=== PATIENT | female | born 1945 | race Hispanic/Latino ===

== ENCOUNTER 2017-10-11 06:05 | Observation (INO) | payer MEDICARE ==
[2017-10-10 11:30] LABS: BASOPHILS % 0.4 % (0.0-1.0); EOSINOPHILS # (AUTO) 0.1 (0.0-0.4); EOSINOPHILS % 2.3 % (0.0-6.0); HEMATOCRIT 41.7 % (34.2-44.1); HEMOGLOBIN 13.9 g/dL (12.0-16.0); LYMPHOCYTES % 38.2 % (18.0-39.1); MEAN CORPUSCULAR HEMOGLOBIN 30.3 pg (28-32); MEAN CORPUSCULAR HGB CONC 33.3 g/dL (31-35); MEAN CORPUSCULAR VOLUME 90.8 fL (81-99); MONOCYTES # (AUTO) 0.4 (0.2-0.8); MONOCYTES % 6.6 % (4.4-11.3); NEUTROPHILS # (AUTO) 2.8 (2.1-6.9); NEUTROPHILS % 52.3 % (38.7-80.0); PLATELET COUNT 203 x10e3/uL (140-360); RED BLOOD COUNT 4.59 x10e6/uL (3.6-5.1); RED CELL DISTRIBUTION WIDTH 12.4 % (11.7-14.4)
[2017-10-10 11:56] LABS: ALANINE AMINOTRANSFERASE 30 IU/L (0-55); ALBUMIN/GLOBULIN RATIO 1.1 (0.8-2.0); ALKALINE PHOSPHATASE 112 IU/L (40-150); ANION GAP 14.9 mmol/L (8-16); BLOOD UREA NITROGEN 12 mg/dL (7-26); BUN/CREATININE RATIO 13 (6-25); CALCIUM 10.1 mg/dL (8.4-10.2); CARBON DIOXIDE 31 mmol/L (22-29); CHLORIDE 100 mmol/L (98-107); EST GLOMERULAR FILTRATION RATE > 60 ML/MIN (60-); GLUCOSE 199 mg/dL (74-118); POTASSIUM 3.9 mmol/L (3.5-5.1); SODIUM 142 mmol/L (136-145)
--- NOTE | 2017-10-10 12:35 | Diagnostic Imaging Report ---
PROCEDURE:CHEST 2 VIEWS TECHNIQUE:PA and lateral chest INDICATION:Preoperative evaluation for cystoscopy surgery COMPARISON:None. FINDINGS: Lungs are clear and symmetrically inflated. No pleural effusions. Normal heart size, mediastinal contour, and pulmonary vasculature. Intact skeleton. 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 CONCLUSION: No acute abnormality. Dictated by: Iron Philippe M.D. on 10/10/2017 at 12:38 Electronically approved by: Iron Philippe M.D. on 10/10/2017 at 12:38
[~2017-10-11] VITALS: Ht 154.9 cm; Wt 87.8 kg
[~2017-10-11 06:05] MED LIST: B-12500 MCG; CALTRATE-600 W1 EACH PO; DIOVAN HCT 3201 EAC1; FISH OIL 1,0001 EAC2; FISH OIL OMEGA1 EACH PO; FOLIC ACID1 MG PO; LOVASTATIN10 MG; METFORMIN HCL500 MG PO; METOPROLOL SUCC50 MG PO; VITAMIN B-650 MG PO
[2017-10-11] MEDS ORDERED: CEFAZOLIN SOD 2 GM/D5W 50ML 50 ML IV ONE (06:23)
[2017-10-11] MEDS ORDERED: BUPIVACAINE 0.5%/EPI 30 ML SDV INJ ONE ×2 (06:56→10:18)
[2017-10-11] MEDS ORDERED: ESTROGENS CONJUGATED VAGINAL CR 45 GM TUBE PV ONE (06:56)
[2017-10-11] MEDS ORDERED: IOPAMIDOL 610MG/1ML 300 MG/ML VIAL IV ONE (06:56)
[2017-10-11] MEDS ORDERED: DIATRIZOATE MEGLUMINE 300 MG/1 ML BTL UR ONE (09:07)
[2017-10-11] MEDS ORDERED: DEXTROSE 50% SYRINGE 50 ML IV PRN (12:30)
[2017-10-11] MEDS ORDERED: MORPHINE SULFATE 2 MG/ML SYR IV PRN (12:30)
[2017-10-11] MEDS ORDERED: DOCUSATE SODIUM 100 MG CAP PO PRN (12:30)
[2017-10-11] MEDS ORDERED: DIPHENHYDRAMINE HCL 25 MG CAP PO PRN (12:30)
[2017-10-11] MEDS ORDERED: ONDANSETRON HCL INJ 2 MG/ML VIAL IV PRN (12:30)
[2017-10-11] MEDS ORDERED: PROMETHAZINE HCL (IM) 25 MG/ML VIAL IV PRN (12:30)
[2017-10-11] MEDS ORDERED: HYDROCODONE/APAP 5MG-325MG TAB PO PRN (12:30)
[2017-10-11] MEDS ORDERED: ONDANSETRON HCL INJ 2 MG/ML VIAL ONE ×2 (13:11→14:07)
[2017-10-11] MEDS ORDERED: METOCLOPRAMIDE HCL 10 MG/2ML VIAL ONE (13:32)
[2017-10-11] MEDS ORDERED: CEFAZOLIN SOD 1 GM VIAL ONE (14:07)
[2017-10-11] MEDS ORDERED: ROCURONIUM BROMIDE 10 MG/ML 5ML VIAL ONE (14:07)
[2017-10-11] MEDS ORDERED: GLYCOPYRROLATE INJ 1MG/ 5 ML SYR ONE (14:07)
[2017-10-11] MEDS ORDERED: ACETAMINOPHEN 1000 MG/100 ML IV ONE (14:07)
[2017-10-11] MEDS ORDERED: NEOSTIGMINE 5 MG/5ML SYR ONE (14:07)
[2017-10-11] MEDS ORDERED: SEVOFLURANE INHAL SOLN 250 ML PEN BTL ONE (14:07)
[2017-10-11] MEDS ORDERED: PROPOFOL IV EMULSION 10 MG/ML 20 ML VIAL ONE (14:07)
[2017-10-11] MEDS ORDERED: LIDOCAINE HCL 2% LOCAL INJ 5 ML SDV VIAL INJ ONE (14:07)
[2017-10-11] MEDS ORDERED: DEXAMETHASONE SOD PHOS INJ 4 MG/ML VIAL ONE (14:07)
[2017-10-11 15:47] VITALS: BP 104/52
[2017-10-11 16:09] VITALS: BP 104/52
[2017-10-11] MEDS: INSULIN REGULAR, HUMAN 100 UNIT/1 ML 3ML VIAL SQ SCH ×2 (16:30→21:00)
[2017-10-11] MEDS: LACTATED RINGER'S 1,000 ML IV SCH ×2 (17:12→21:46)
[2017-10-11] MEDS: METFORMIN HCL 500 MG TAB PO SCH (17:12)
[2017-10-11] MEDS: CEFAZOLIN SOD 1 GM VIAL IV SCH (17:13)
[2017-10-11] MEDS ORDERED: CEFAZOLIN SOD 1 GM/NS 50ML 50 ML IV SCH (18:00)
[2017-10-11] MEDS: KETOROLAC TROMETHAMINE 30 MG/ML VIAL IV SCH (18:04)
--- NOTE | 2017-10-11 18:44 | Operative Report ---
DATE OF PROCEDURE: October 11, 2017 ATTENDING PHYSICIAN: Valeria Tomlinson MD SERVICE: Urology. PREOPERATIVE DIAGNOSES 1. Large cystocele. 2. Frequency of urination. 3. Left pelvic ovarian mass. POSTOPERATIVE DIAGNOSES 1. Large cystocele. 2. Frequency of urination. 3. Left pelvic ovarian mass. OPERATION PERFORMED 1. Cystourethroscopy and bilateral retrograde pyelograms under fluoroscopic control. 2. Placement of open-ended catheters bilaterally. 3. Cystogram under fluoroscopic control. 4. Interpretation of x-ray. Radiologist not present. 5. Supervision of fluoroscopy. Radiologist not present. OLIVE BRINE TESTER: None. ANESTHESIA: General. CLINICAL INDICATION NOTE: This 72-year-old patient was brought for hysterectomy. She does have a prolapse and left pelvic mass in the ovary. Dr. Valeria Tomlinson is the attending and will do the gynecological part. Planning to do a cystogram as well as cystoscopy and retrograde to assess the upper tracts and place open-ended catheters bilaterally to ease identification of the ureters during surgery. Procedure was discussed with the patient. Potential benefits and complications discussed, explained and accepted. DESCRIPTION OF PROCEDURE AND FINDINGS: After the proper level of anesthesia was achieved, the patient was placed in the lithotomy position, prepped and draped in a sterile fashion. Urethra inspected and is unremarkable. Patient had significant cystocele with the cervical uterus protruding out of the introitus. The bladder itself is unremarkable except for the deformity due to the cystocele. Both ureteral orifices were prominent. They were identified. Open-ended catheters were inserted bilaterally. No tumor or foreign bodies were found in the bladder. Bilateral retrogrades were done under fluoroscopic control. No intrinsic lesions were identified. No hydronephrosis. Open-ended catheters were then inserted up to each kidney. Following this, a cystogram was done under fluoroscopic control. No pathology was identified, and drainage film did not show any extravasation. Shearer catheter was kept in place, and both ureteral catheters were inserted into the Shearer. Job#: [id number]
[2017-10-11] MEDS ORDERED: FENTANYL CITRATE/PF 100MCG/2 ML INJ ONE (18:56)
[2017-10-11] MEDS ORDERED: MIDAZOLAM HCL 2 MG/2 ML VIAL ONE (18:56)
[2017-10-11 20:00] VITALS: BP 107/58
[2017-10-11 21:00] VITALS: BP 107/58
[2017-10-11] MEDS ORDERED: SIMVASTATIN 20 MG TAB PO SCH (21:00)
[2017-10-12] MEDS: KETOROLAC TROMETHAMINE 30 MG/ML VIAL IV SCH ×2 (00:11→06:16)
[2017-10-12 00:40] VITALS: BP 115/56
[2017-10-12] MEDS: CEFAZOLIN SOD 1 GM VIAL IV SCH ×2 (01:11→10:11)
[2017-10-12] MEDS: LACTATED RINGER'S 1,000 ML IV SCH (05:17)
[2017-10-12 05:40] VITALS: BP 97/53
[2017-10-12 06:10] LABS: BASOPHILS % 0.1 % (0.0-1.0); HEMATOCRIT 28.8 % (34.2-44.1); HEMOGLOBIN 9.5 g/dL (12.0-16.0); LYMPHOCYTES # (AUTO) 1.7 (1.0-3.2); LYMPHOCYTES % 20.3 % (18.0-39.1); MEAN CORPUSCULAR HEMOGLOBIN 30.4 pg (28-32); MEAN CORPUSCULAR VOLUME 92.3 fL (81-99); MONOCYTES # (AUTO) 0.7 (0.2-0.8); MONOCYTES % 8.9 % (4.4-11.3); NEUTROPHILS # (AUTO) 5.8 (2.1-6.9); NEUTROPHILS % 70.3 % (38.7-80.0); PLATELET COUNT 170 x10e3/uL (140-360); RED BLOOD COUNT 3.12 x10e6/uL (3.6-5.1); RED CELL DISTRIBUTION WIDTH 12.6 % (11.7-14.4)
[2017-10-12 06:49] LABS: ANION GAP 13.2 mmol/L (8-16); CALCIUM 8.1 mg/dL (8.4-10.2); CREATININE, SERUM 0.99 mg/dL (0.57-1.11); POTASSIUM 4.2 mmol/L (3.5-5.1)
[2017-10-12] MEDS: INSULIN REGULAR, HUMAN 100 UNIT/1 ML 3ML VIAL SQ SCH (07:30)
[2017-10-12 07:35] VITALS: BP 108/52
[2017-10-12 08:00] VITALS: BP 108/52
[2017-10-12] MEDS: METFORMIN HCL 500 MG TAB PO SCH (08:10)
[2017-10-12] MEDS ORDERED: COLACE100 M1 PO (08:22)
[2017-10-12] MEDS ORDERED: Hydrocodone/Apap 5MG-325MG PO (08:22)
[2017-10-12] MEDS ORDERED: IBUPROFEN600 MG PO (08:22)
[2017-10-12] MEDS ORDERED: FERROUS SULFAT325 M1 PO (08:24)
[2017-10-12] MEDS ORDERED: FAMOTIDINE20 MG PO (08:24)
[2017-10-12] MEDS: HYDROCODONE/APAP 10MG-325MG TAB PO PRN ×2 (08:25→09:25)
[2017-10-12] MEDS ORDERED: VALSARTAN 160 MG TAB PO SCH (09:00)
[2017-10-12] MEDS ORDERED: ENOXAPARIN SOD INJ 40 MG/0.4 ML SYR SC SCH (09:00)
[2017-10-12] MEDS ORDERED: DOCUSATE SODIUM 100 MG CAP PO SCH (09:00)
[2017-10-12] MEDS ORDERED: METOPROLOL SUCCINATE 50 MG TAB XL PO SCH (09:00)
--- NOTE | 2017-10-12 12:03 | Operative Report ---
DATE OF PROCEDURE: October 11, 2017 SINGLE FOLD MACHINE OPERATOR: WALLY Fortune PREOPERATIVE DIAGNOSES 1. Right ovarian cyst. 2. Postmenopausal bleeding. 3. Pelvic organ prolapse. POSTOPERATIVE DIAGNOSES 1. Right ovarian cyst. 2. Postmenopausal bleeding. 3. Pelvic organ prolapse. PROCEDURE PERFORMED: Laparoscopically-assisted vaginal hysterectomy, bilateral salpingo-oophorectomy, anterior colporrhaphy, posterior colporrhaphy, and sacrospinous colpopexy. ANESTHESIA: General. ESTIMATED BLOOD LOSS: 250 mL. COMPLICATIONS: None. FINDINGS: Complete procidentia of the uterus with a 4th-degree cystocele and 2nd-degree rectocele. An approximately 8 to 9 cm complex right ovarian cyst was also noted. Normal adnexa on the left was determined. SPECIMENS: Uterus and bilateral adnexa with ovarian cyst. INDICATIONS: The patient is a 72-year-old female with pelvic organ prolapse, postmenopausal bleeding, and a large, right-sided, complex ovarian cyst. PROCEDURE NOTE: Prior to the operation, the risks, benefits, and alternatives were discussed, and the consent was reconciled. The patient was brought to the operating room and was properly identified. The patient was placed on the operating table in the dorsal supine position, and general endotracheal anesthesia was induced by the anesthesiologist. The patient was then repositioned to the dorsal lithotomy position in adjustable Jared stirrups and prepped and draped in the typical sterile fashion. A time out was then performed. A weighted speculum was placed in the vagina with visualization of the cervix, which was grasped along the anterior lip using a single-tooth tenaculum. This facilitated placement of the VCare uterine manipulator followed by removal of the single-tooth and speculum. Attention was then turned to the laparoscopic portion of the procedure. Infraumbilical skin was infiltrated with 0.5% Marcaine with epinephrine and incised using a scalpel to create a 5-mm incision. A 5-mm trocar was placed under direct visualization. The abdomen was then insufflated with CO2 gas to a maximal pressure of 15 mmHg. The abdomen and pelvis were then inspected with the above-noted findings. Secondary 5-mm trocars were then placed in the left and right lower quadrants under direct visualization with the laparoscope. After a thorough inspection of the pelvis, both ureters were visualized with stents in place, and their courses were well away from the planned procedure. A LigaSure device was then introduced and used to coagulate and divide the left infundibulopelvic ligament. This incision was carried along the mesosalpinx to the broad ligament. The LigaSure was then used to coagulate and divide the left round ligament. This incision was continued along the anterior leaf of the broad ligament, undermining and dividing the vesicouterine peritoneal reflection laterally to medially just to the right of the midline. Attention was turned to the right infundibulopelvic ligament, which was likewise coagulated and divided with the LigaSure device, with continuation of this incision along the mesosalpinx down to the broad ligament. The right utero-ovarian ligament was also transected in order to free the large cyst from the remainder of the specimen. The right round ligament was then coagulated and divided, and the incision was continued along the anterior leaf of the broad ligament, undermining and dividing the vesicouterine peritoneal reflection laterally to medially to unite with the incision from the left. The posterior leaf of the broad ligament was then coagulated and divided to the utero-ovarian ligament. This was all coagulated and divided with good hemostasis. Sharp and blunt dissection was then used to mobilize the bladder off the lower uterine segment, cervix and upper vagina. The pneumoperitoneum was then evacuated, and the patient was repositioned to high lithotomy position for the vaginal portion of the procedure. A weighted posterior retractor was placed in the posterior fornix and the VCare removed and 2 single-tooth tenaculums used to grasp the cervix. The cervix was injected circumferentially with 0.25% Marcaine with epinephrine, and the scalpel was used to incise around the cervix circumferentially. The posterior cul-de-sac was easily entered using Metzenbaum scissors. Two right-angle retractors were then used to retract the bladder anteriorly and the ureters laterally. The right uterosacral ligament was then identified, clamped with a curved Zeppelin clamp and divided. This was ligated with #0 Vicryl suture. In a like fashion, the left uterosacral ligament was clamped, divided and suture ligated with #0 Vicryl. The left cardinal ligament was then identified and clamped with a LigaSure device, and it was coagulated and divided. This was repeated to the level of the uterine vessels at the internal cervical os. This was then repeated on the right side. This allowed for delivery of the uterus and fallopian tubes with attached left ovary through the vagina. The abdomen and pelvis were copiously irrigated with normal saline, and all pedicles were inspected and found to be hemostatic. The pneumoperitoneum was then re-established. A splenectomy bag was introduced through the vaginal cuff and used to grasp the large ovarian cyst, which was then pulled through the vaginal cuff without any trauma to the cyst. The vaginal cuff was then copiously irrigated. Attention was turned to the pelvic floor repair. The lateral edges of the vaginal cuff were held with Allis clamps on tension while a solution of 0.5% Marcaine with epinephrine was injected just below the vaginal mucosa throughout the area of the cystocele. Several Allis clamps were placed 3 to 4 cm apart up the midline of the anterior vaginal wall. The edges of the vaginal mucosa were then held with hemostats, and the Metzenbaum scissors were used to undermine mucosa from the underlying fascia. The mucosa was then opened with the scissors in the midline to within 1 cm of the urethral meatus. As the vagina was opened, the edges of the mucosa were grasped with Allis clamps. The fascia was from the vaginal mucosa using both sharp and blunt dissection until the bladder and urethra were from the vaginal mucosa and clearly identified. A finger was then inserted through the incision in the vaginal mucosa and used to bluntly dissect the rectovaginal space on the patient's right side. The ischial spine and sacrospinous ligament were palpated, and loose areolar tissue was bluntly dissected off the ligament. A zone approximately 1.5 cm medial to the ischial spine was selected for insertion of the suture. A [employer] suture capturing device was then loaded with #0 Vicryl suture and was introduced into this space and passed through the sacrospinous ligament. This entire procedure was then repeated on the patient's left sacrospinous ligament. The ends of the suture previously inserted through the sacrospinous ligament were then placed through the muscular layer of the vagina using the suture capturing device. Attention was then returned to the anterior repair, which was started by placing #0 Vicryl sutures in the pubovesicocervical fascia approximately 1 cm below the urethral meatus. The remaining fascia was plicated in the midline with multiple interrupted #0 Vicryl sutures until the entire cystocele had been reduced. The edges of the vaginal mucosa were held on tension, and the excessive vaginal mucosa was trimmed away using Diaz scissors. The vaginal mucosa was then sutured in the midline with continuous #0 Vicryl. The vaginal cuff was then closed. The vaginal cuff was inspected and found to be hemostatic. Attention was then returned to the sacrospinous ligament fixation, where the previously clamped sutures were tied, drawing the vaginal vault directly to the level of the ligaments and then fixing them in place. Attention was then turned to the posterior colporrhaphy where the apices of the posterior fourchette were grasped with Allis clamps. A solution of 1% Marcaine with epinephrine and Exparel was injected just below the vaginal mucosa throughout the area of the rectocele. A transverse incision was then made with a scalpel at the level of the hymenal ring. An additional Allis clamp was placed in the midline at the top of the rectocele, and 2 hemostats were placed at the edges of the mucosa for retraction. Metzenbaum scissors were then inserted under the posterior vaginal mucosa, dissecting the posterior mucosa off of the rectovaginal fascia. A midline incision was then made in the mucosa. This process was repeated until the superior aspect of the rectocele was reached. Interrupted sutures of 2-0 Vicryl were placed to reapproximate the superficial transverse perinei muscle and the levator ani muscle respectively. The vagina was then closed over this repair using running 2-0 Vicryl suture. The bulbocavernosus was reapproximated in the midline with a single interrupted 2-0 Vicryl suture. The perineal body was repaired using 2-0 Vicryl in a subcuticular fashion. Vaginal packing soaked in Premarin cream was then placed within the vagina, and all instruments were removed. Attention was then returned to the laparoscopic portion of the procedure. The abdomen was insufflated again. The abdomen and pelvis were copiously irrigated with normal saline, and all sites were found to be hemostatic. All umbilical trocar sites were then removed under direct visualization. All incisions were closed with 4-0 Monocryl in a subcuticular fashion and covered with Dermabond. The patient was awakened from anesthesia and extubated in the operating room. She was then authorized to be taken to the PACU in good condition. Sponge, needle, instrument and lap counts were correct times 2. Job#: [id number]
== END 2017-10-12 10:50 | disposition home or self-care (01) ==
LOC: OR 06:05 → PACU V 12:35 → IMCU 15:08
PROVIDERS: ADMIT Obstetrics & Gynecology Obstetrics; ATTEND Obstetrics & Gynecology Obstetrics
DX: N81.89 Other female genital prolapse (principal); N95.0 Postmenopausal bleeding; D27.0 Benign neoplasm of right ovary; D25.1 Intramural leiomyoma of uterus; D25.0 Submucous leiomyoma of uterus; D25.2 Subserosal leiomyoma of uterus; N72 Inflammatory disease of cervix uteri; N81.4 Uterovaginal prolapse, unspecified; R35.0 Frequency of micturition; Z87.891 Personal history of nicotine dependence; I10 Essential (primary) hypertension; E11.9 Type 2 diabetes mellitus without complications
CPT/HCPCS: 36415 ×3; 52005; 57260; 57282; 58552; 71046; 74420; 74430; 80048; 80053; 82948 ×2; 85025 ×2; 86850; 86900; 88305; 88307; 88329; 93005; G0378 ×2; J0690 ×2; J1100; J1650 ×2; J1885 ×2; J2001; J2250; J2405; J2765; J3490; J7120 ×2; Q9967

== ENCOUNTER → 2024-09-07 | Outpatient (REF) | payer MEDICARE ==
[~2024-09-07] MED LIST changes: +COLACE100 M1 PO; +FAMOTIDINE20 MG PO; +FERROUS SULFAT325 M1 PO; +Hydrocodone/Apap 5MG-325MG PO; +IBUPROFEN600 MG PO; +IOPAMIDOL 370 MG/ML 100 ML INFUS..BTL INJ ONE
[2024-09-07 10:54] LABS: CREATININE, SERUM 0.87 mg/dL (0.57-1.11)
== END ==
LOC: CT 09:35
PROVIDERS: ATTEND Nurse Practitioner Family
DX: R19.5 Other fecal abnormalities (principal); R10.13 Epigastric pain; R19.8 Other specified symptoms and signs involving the digestive system and abdomen
CPT/HCPCS: 36415; 74177; 82565; 84520; Q9967